=== PATIENT | male | born 1950 | race Caucasian/White ===

== ENCOUNTER 2019-05-19 10:16 | Emergency (ER) | payer OTHER ==
[2019-05-19] MEDS ORDERED: EPINEPHrine 1 MG/10 ML SYR IV ONE (10:17)
[2019-05-19] MEDS ORDERED: D50W 25 GM/50 ML SYRINGE IV ONE (10:17)
[2019-05-19] MEDS ORDERED: EPINEPHRINE/PF 1 MG/ML AMP IV ONE (10:17)
[2019-05-19] MEDS ORDERED: Caclcium Chloride 10% INJ SYR IV ONE (10:17)
[2019-05-19] MEDS ORDERED: SODIUM CHL 0.9% 1000 ML BAG IV ONE (10:17)
[2019-05-19] MEDS ORDERED: EPINEPHrine 1 MG/10 ML SYR ONE ×2 (10:28→10:29)
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
[2019-05-19 14:50] VITALS: TEMP 97.6
== END 2019-05-19 14:46 | disposition expired ==
LOC: ER 10:16
PROC: 06HY33Z Insertion of Infusion Device into Lower Vein, Percutaneous Approach (ICD-10-PCS; principal; 2019-05-19)
DX: I46.9 Cardiac arrest, cause unspecified (principal)
CPT/HCPCS: 31500; 92950; 99285; 36556; J0171 ×4; J7030